=== PATIENT | male | born 1990 | race Caucasian/White ===

== ENCOUNTER 2016-08-27 19:00 | Inpatient (IN) ==
--- NOTE | 2016-08-27 19:04 | Emergency Department Note ---
Disposition Clinical Impression: Chest pain, Abnormal EKG Disposition: Admitted As Inpatient General Adult [facility] - General Chief complaint: ED Chest Pain Stated complaint: chest pain Time Seen by Provider: 08/27/16 19:03 - Related Data Home Medications Medication Instructions Recorded Confirmed No Known Home Drugs 08/27/16 08/27/16 Allergies Allergy/AdvReac Type Severity Reaction Status Date / Time No Known Allergies Allergy Verified 08/27/16 20:50 Course Vital Signs Temperature 98.2 F 08/27/16 19:02 Pulse Rate 70 08/27/16 19:02 Respiratory Rate 11 08/27/16 19:02 Blood Pressure 137/86 08/27/16 19:02 O2 Sat by Pulse Oximetry 97 08/27/16 19:02 Temperature 98.2 F 08/27/16 19:02 Pulse Rate 59 08/27/16 21:25 Respiratory Rate 14 08/27/16 22:26 Blood Pressure 127/75 08/27/16 22:26 O2 Sat by Pulse Oximetry 96 08/27/16 21:25 Oxygen Delivery Oxygen Delivery Room Air Medical Decision Making - Lab Data Lab Results 08/27/16 Range/Units 21:18 Troponin I 0.00 (0-0.03) ng/mL Attestation Statement - Attestation Attestation: I examined this patient and my medical decision-making was reviewed with the WIENER PACKER/PA/Advanced Practice Nurse/Resident Physician. I agree with the documented findings, disposition and treatment plan as described except to the extent set forth below. [id number] time provided Patient presents as a transfer from the [place]. He reports palpitations and dyspnea last night. chest tightness at work today. The labs reviewed by me. EKG reviewed by me. Patient appears in no acute distress 20:25: ECG discussed with the on-call baker doughnut by the resident physician.
--- NOTE | 2016-08-27 21:06 | Emergency Department Note ---
Disposition Clinical Impression: Abnormal EKG Chest pain Qualifiers: Chest pain type: unspecified Qualified Code(s): R07.9 - Chest pain, unspecified Disposition: Admitted As Inpatient Referrals: NO,PCP [Primary Care Provider] - Forms: ED Satisfaction Letter Chest Pain HPI - General Chief Complaint: ED Chest Pain Stated Complaint: chest pain Time Seen by Provider: 08/27/16 19:03 Source: EMS Limitations: no limitations Vital Signs Reviewed: Yes Nursing Notes Reviewed: Yes - History of Present Illness HPI Narrative: Patient transferred from the [place] for evaluation of chest pain and abnormal EKG. Patient's symptoms started last night with palpitation shortness of breath associated midsternal chest pain/pressure. 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 Symptoms resolved after approximately 5 minutes. Patient is currently chest pain-free however repeat EKG continues to show abnormal pattern. Chest x-ray shows no pulmonary consolidation noted pneumothorax or nonenlarged cardiac silhouette. Past medical history includes gynecomastia and alcohol dependence. Blood work shows WBC of 5.6. Hemoglobin 15.1. Platelets 204. CK electrolytes LFTs and troponin negative. Severity scale (1-10): 0 - Related Data Home Medications Medication Instructions Recorded Confirmed No Known Home Drugs 08/27/16 08/27/16 Allergies Allergy/AdvReac Type Severity Reaction Status Date / Time No Known Allergies Allergy Verified 08/27/16 20:50 Chest Pain PMH - Past Medical History Medical history: Reports: asthma Psychiatric history: Reports: no psych history - Social History Smoking Status: Former smoker Alcohol use: Reports: none Drug use: Reports: none Physical Exam - General Limitations: no limitations General appearance: alert, in no apparent distress - Head Head exam: atraumatic, normocephalic - Eye Eye exam: Present: normal appearance - ENT ENT exam: normal exam - Neck Neck exam: Present: normal inspection - Chest Chest inspection: Present: normal inspection, symmetric chest wall rise, other ( Gynecomastia). Absent: tenderness - Respiratory Respiratory exam: Present: normal lung sounds bilaterally. Absent: respiratory distress, wheezes - Cardiovascular Cardiovascular exam: Present: regular rate, normal rhythm - Abdominal Exam Abdominal exam: Present: soft, Non-Tender - Extremities Exam Extremities exam: Present: normal inspection. Absent: tenderness - Back Exam Back exam: Present: normal inspection - Neurological Exam Neurological exam: Present: alert, oriented X3. Absent: CN II-XII intact - Psychiatric Psychiatric exam: Present: normal affect, normal mood - Skin Skin exam: Present: warm, dry Course - Reevaluation(s) Reevaluation #1: Discussed with patient and mother at bedside. Due to the abnormal findings and discussion with cardiology would like to stay for further evaluation. - Consultations Consultation #1: Discussed with cardiology. Patient does have an abnormal EKG including a right bundle branch block with inferior changes. Patient would benefit from further evaluation at this time. Recommends echocardiogram for further workup as well as cardiology consult. Oxygen Therapist is unable to recommend outpatient treatment at this time. Consultation #2: Discussed with the hospitalist, Dr. Hahn, patient accepted for admission. Vital Signs Temperature 98.2 F 08/27/16 19:02 Pulse Rate 70 08/27/16 19:02 Respiratory Rate 11 08/27/16 19:02 Blood Pressure 137/86 08/27/16 19:02 O2 Sat by Pulse Oximetry 97 08/27/16 19:02 Temperature 98.2 F 08/27/16 19:02 Pulse Rate 62 08/27/16 20:04 Respiratory Rate 14 08/27/16 20:04 Blood Pressure 137/86 08/27/16 20:04 O2 Sat by Pulse Oximetry 96 08/27/16 20:04 Chest Pain - Radiology Data Radiology results reviewed: Yes I reviewed the patient's radiology results. - EKG Data EKG attestation: Yes I reviewed and interpreted this EKG. EKG results narrative: EKG shows sinus rhythm with right bundle branch block. Ventricular rate 64 bpm. TN interval 140. QRS 112. QT 388. Patient has inverted T waves in V1. Patient has abnormal inferior leads including RR prime in lead 3 as well as inverted T waves in the inferior leads. No previous EKG.
--- NOTE | 2016-08-27 22:27 | Internal Med History&Physical ---
Date of Encounter: 08/27/16 Time of Encounter: 22:24 Assessment and Plan (1) Chest pain Current visit: Yes Status: Acute Patient presents with atypical chest pain. Pain occurs at rest. No relation with exertion. He runs 2 miles several days a week on treadmill without limiting chest pain. His EKG shows an incomplete RBBB but we do not have a baseline. Will check the D-dimer. Serial troponin. Cardiology evaluation. Echocardiogram. Qualifiers: Chest pain type: unspecified Qualified Code(s): R07.9 - Chest pain, unspecified Internal Medicine - H&P: HPI Chief complaint: chest pain History of present illness: Mr. Gudino is a 26 year old male patient with no past medical history was transferred from the [facility] for evaluation of chest pain after some concern about his electrocardiogram. For the past 3 days patient has been having episodes of registered or chest pain that have no clear relation with exertion occasionally occurs at rest last for a few minutes associated shortness of breath and relief spontaneously. 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 He also lifts weight. He denies any pain in his back he denies any abdominal or flank pain. Pain is not superior intensity. No relation paint coffer deep inspiration. No family history of premature coronary artery disease in first- degree relatives. No family history of unprovoked DVT or pulmonary embolism. Patient denies any syncope Past Med Surg Social Fam HX - Past Medical History Medical history: asthma Psychiatric history: no psych history - Social History Smoking Status: Former smoker Smokeless Tobacco Status: No Alcohol use: none Drug use: none Internal Medicine - H&P: Meds No Known Home Drugs 08/27/16 [History] Allergies No Known Allergies Allergy (Verified 08/27/16 20:50) All Systems PM: A 10-system review of systems was performed and is negative for pertinent findings except as documented above in the HPI. Review of systems: Ten point review of systems is negative except for HPI. - Constitutional Vitals: Temp Pulse Resp BP Pulse Ox 98.2 F 59 16 118/69 96 08/27/16 19:02 08/27/16 21:25 08/27/16 21:25 08/27/16 21:25 08/27/16 21:25 Exam: Gen.: patient is alert and oriented times 3 not in distress. Cardiac: normal S1 S2 no additional sounds or murmur. Chest: Clear auscultation bilaterally abdomen: soft nontender nondistended normal bowel sounds no focal neurological deficits lower extremity lax calf muscles no swelling
[2016-08-28] MEDS ORDERED: *HR* Enoxaparin 30 MG/0.3 ML SYRINGE SQ SCH (07:00)
[2016-08-28] MEDS ORDERED: Aspirin 81 MG TAB.CHEW PO SCH (09:00)
[2016-08-28] MEDS ORDERED: Famotidine 20 MG TABLET PO SCH (09:00)
--- NOTE | 2016-08-28 09:31 | Cardiology Consult Note ---
<Ervin Alan Sukhjinder - Last Filed: 08/28/16 09:27> Date of Encounter: 08/28/16 Time of Encounter: 09:27 Assessment and Plan (1) Chest pain Current Visit: Yes Status: Acute Atypical CP midsternal--occurs at both rest and exertion, not worsened or relieved by anything specifically. Associated with dyspnea and diaphoresis. EKG with incomplete RBBB. Troponins negative x 2. Will obtain echo to evaluate structure and function. Exercise stress test to evaluate for ischemia. DDimer <215 and pt maintaining O2 on RA. No high suspicion for PE. Further recommendations following Echo and Exercise stress test results. Qualifiers: Chest pain type: unspecified Qualified Code(s): R07.9 - Chest pain, unspecified (2) Palpitations Current Visit: Yes Status: Acute Reports intermittent palpitations. 12 hour tele AVG HR 64. No significant pauses or arrhythmias noted. Echo and exercise stress. (3) Abnormal EKG Current Visit: Yes Status: Acute Incomplete RBBB on EKG, no prior to compare. No evidence of acute ischemic changes. Echo and exercise stress. Discussion w patient/family: The assessment and plan as outlined above was discussed with the patient and/or family members who expressed understanding and agreement. All questions were answered. Thank you for involving us in the care of your patient. Please call with any questions. I will discuss all the above with Dr. Craig and make changes as necessary. History of Present Illness Consult date: 08/28/16 Requesting physician: Kyree Wick Consult reason: chest pain, RBBB Chief complaint: chest pain History of present illness: Mr. Gudino is a 26 year old male with no past medical history was transferred from the [facility] for evaluation of chest pain after some concern about his electrocardiogram for RBBB. Pt reports he has been having chest pain for a while, but worsened over the past 2 days. The chest pain is midsternal without radiation mostly, but occasionally feels the pain is in his back. Not associated specifically with exertion, but occurs with both rest and exertion associated with dyspnea and diaphoresis. He reports intermittent palpitations as well. He runs 2 miles several times a week on the treadmill without any limiting chest pain. He also lifts weights. No family history of premature coronary artery disease in first-degree relatives. No family history of unprovoked DVT or pulmonary embolism. Patient denies any syncope. Past Med Surg Social Fam HX - Past Medical History Medical history: asthma Psychiatric history: no psych history - Social History Smoking Status: Former smoker Smokeless Tobacco Status: No Alcohol use: none Drug use: none Medications and Allergies No Known Home Drugs 08/27/16 [History] Allergies No Known Allergies Allergy (Verified 08/27/16 20:50) All Systems Review: A 10-system review of systems was performed and is negative for pertinent findings except as documented above in the HPI. - Cardiovascular Cardiovascular: as per HPI, chest pain at rest, chest pain with exertion, diaphoresis, dyspnea on exertion, radiating jaw, neck or arm pain, palpitations - Respiratory Respiratory: dyspnea Physical Examination Vital Signs, Last 4 Hours Temp Pulse Resp BP Pulse Ox 08/28/16 07:36 98.8 F 66 16 100/62 98 Vital Signs Temp Pulse Resp BP Pulse Ox 08/28/16 07:36 98.8 F 66 16 100/62 98 08/28/16 04:12 98.4 F 66 18 107/64 97 08/28/16 00:33 98.4 F 60 20 120/74 98 08/27/16 22:26 14 127/75 08/27/16 21:25 59 16 118/69 96 08/27/16 20:04 62 14 137/86 96 08/27/16 19:02 98.2 F 70 11 137/86 97 Intake and Output 08/27/16 08/28/16 08/28/16 23:59 07:59 15:59 Intake Total 0 / 0 Output Total 200 / 200 Balance -200 / -200 Intake: Oral 0 / 0 Output: Urine 200 / 200 Other: Weight 90.718 kg 91.354 kg Patient Weight 08/28/16 23:59 Weight 91.354 kg General: Conversant, No Apparent Distress HEENT: Atraumatic, Normocephaly, Mucus Membranes Moist Neck: No JVD, Normal carotid pulses Cardiac: Reg Rate and Rhythm, Normal S1 and S2, No Murmur Lungs: Normal Breath Sounds, No Wheeze, Rales, Rhonchi Neuro: Alert and responsive, No focal deficits noted Abdomen: Soft, Non-Tender Skin: No rashes noted on visualized skin Musculoskeletal: No Chest Wall Tenderness Extremities: No Clubbing, No Cyanosis, No Edema, Normal Pulses Results Lab Results 08/28/16 08/28/16 06:45 06:45 D-Dimer < 215 Troponin I 0.00 Cardiac Enzymes 08/28/16 08/27/16 Range/Units 06:45 21:18 Troponin I 0.00 0.00 (0-0.03) ng/mL Active Medications Aspirin (Aspirin) 81 mg PO DAILY [facility] Stop: 02/27/17 09:01 Enoxaparin Sodium (Lovenox) 30 mg SQ 0700 RISA PRN Reason: Protocol Stop: 02/27/17 07:01 Famotidine (Pepcid) 20 mg PO DAILY RISA PRN Reason: Protocol Stop: 02/27/17 09:01 - Imaging and Cardiology Chest Xray: report reviewed Echo: pending - EKG Interpretation EKG results cardiology: personally reviewed (SR, incomplete RBBB), other (12 hour tele AVG HR 64, no significant pauses or arrhythmias.) Consult Discharge Plan - Plan Referrals: [facility] [Primary Care Provider] - <Steffany Craig - Last Filed: 08/28/16 11:46> Date of Encounter: 08/28/16 Assessment and Plan Discussion w patient/family: The assessment and plan as outlined above was discussed with the patient and/or family members who expressed understanding and agreement. All questions were answered. Thank you for involving us in the care of your patient. Please call with any questions. History of Present Illness History of present illness: Mr. Gudino is a 26 year old male All Systems Review: A 10-system review of systems was performed and is negative for pertinent findings except as documented above in the HPI. Physical Examination Vital Signs, Last 4 Hours Temp Pulse Resp BP Pulse Ox 08/28/16 11:13 97.8 F 63 16 108/65 98 Results Lab Results 08/28/16 08/28/16 06:45 06:45 D-Dimer < 215 Troponin I 0.00 - Attending Attestation I examined this patient and my medical decision-making was reviewed with the GROUNDSMAN/PA/Advanced Practice Nurse/Resident Physician. I agree with the documented findings, disposition and treatment plan. Mr. Gudino presents with atypical symptoms of chest pain and palpitations developing over the past week. His troponins are negative and there are no concerning ECG findings. He has a IRBBB which can be a normal finding. We discussed performing an echo for evaluation of structure and function. He will also have a standard stress test for evaluation of symptoms, hemodynamics and dysrhythmia. Given his age and lack of comorbidities, ischemia would be unlikely. This was discussed with the patient and his Mother. Patient agrees with testing.
[2016-08-28 11:14] VITALS: BP 108/65
[2016-08-28] MEDS ORDERED: Aspirin Enteric Coated 81 MG Tablet PO SCH (12:15)
--- NOTE | 2016-08-28 14:41 | Discharge Summary ---
Date of Encounter: 08/28/16 Time of Encounter: 14:37 - Discharge Diagnosis (1) Abnormal stress electrocardiogram test using treadmill Priority: Primary Status: Acute (2) Abnormal EKG Priority: Secondary Status: Acute (3) Chest pain Priority: Secondary Status: Acute Qualifiers: Chest pain type: precordial pain Qualified Code(s): R07.2 - Precordial pain - Discharge Medications Home Medications: No Known Home Drugs 08/27/16 [History] Allergies/Adverse Reactions: Allergies No Known Allergies Allergy (Verified 08/27/16 20:50) Procedures/tests Complete & Pending: Procedures Performed prior 72 hours Category Date Time Status EV echocardiogram Routine Y 08/28/16 22:22 Completed SP exercise stress ECG Routine Y 08/28/16 09:23 Completed Date of admission: 08/27/16 21:44 Primary care physician: PCP MYRA Consults: 08/27/16 22:22 Consult to Cardiology [CONS] Routine Comment: Consulting Provider: Cardiology Kylie Reason for Consult: chest pain Call Completed: Yes Discharging clinician: Aris Echevarria Anticipated date of discharge: 08/28/16 - Patient Status Disposition: Transfer Other Condition: Fair Functional capacity at discharge: independent ambulation - Discharge Instructions Follow Up With: [facility] [Primary Care Provider] - - Diet and Activity Diet: low fat, low cholesterol, low salt diet Hospital course: Mr. Gudino is a 26 year old male with no significant past medical history who was observed in hospital after presenting with chest pain. He had abnormal EKG changes on initial presentation with right bundle branch block and inverted T waves in the inferior leads. Cardiology was consulted and recommended a 2-D echocardiogram and cardiac stress test. Patient just underwent a stress test and had abnormal stress response on EKG with acute ST segment depression in involving the lateral leads. I discussed with cardiology and they recommend that the patient undergo cardiac catheterization or CT scanning of his coronaries As he could have an anatomical abnormalities rather than obstructive coronary artery disease. However, patient states patient and his family wishes to undergo CT scan rather than cardiac catheterization at this time. This test cannot be done here. Therefore the patient will be transferred to a tertiary care center where this study can be done and patient can undergo further evaluation if needed. I discussed his case with [facility] in [place] and patient will be transferred there. - Time Spent with Patient Total time spent providing and/or coordinating discharge services: Less than 30 minutes (27 min) - Constitutional Vitals: Temp Pulse Resp BP Pulse Ox 97.8 F 63 16 108/65 98 08/28/16 11:13 08/28/16 11:13 08/28/16 11:13 08/28/16 11:13 08/28/16 11:13 General appearance: Present: cooperative, A&O X 3, no acute distress, answers questions appropriately - Respiratory Respiratory exam: Present: CTAB. Absent: accessory muscle use, rales, rhonchi, wheezes - Cardiovascular Cardiovascular exam: Present: RRR, +S1, +S2. Absent: diastolic murmur, gallop, rubs, systolic murmur - Extremities Exam Extremities exam: Present: warm, radial pulses palpable and symetrical. Absent : calf tenderness, cyanotic, pedal edema - Attending Attestation This document has been at least partially created by [employer]fox recognition technology by Dr. Echevarria. Errors in grammar, wording or other phrases may exist. If errors are found after the documentation is signed, they will be addressed individually in the addendum section of this document when appropriate.
--- NOTE | 2016-08-28 15:00 | Event Note ---
Date of Encounter: 08/28/16 Time of Encounter: 14:55 - Cardiology Event Note Standard stress test completed. Pt had significant diffuse ST depression with exercise, since recovered with rest and back to baseline. He denied any dyspnea , palpitations, or chest pain. Target HR achieved. Given significant EKG changes , further work-up is warranted. Given his age and lack of risk factors, anomalous coronary artery is suspected. Would recommend cardiac CTA or cardiac MRI, but unfortunately those tests are not able to be done at [facility] or on the inpt side. Discussed with pt and mother regarding a [facility] for further evaluation. They prefer transfer to [place] so that he can have appropriate cardiac imaging (CTA vs MRI), which is reasonable. Will include stress test report in chart and put echo on disc. Echo is stil pending reading.
--- NOTE | 2016-08-28 15:46 | Exercise Stress Test ---
Exercise Stress Name: Earle Gudino Date of Study: 08/28/2016 Date: 1990 Ht: 72.0in Medical Record#: [id number] Age: 26 Wt: 200.0lb Gender: Male BSA: 2.13 Order #: [id number] Location: [facility] Room #: 2A32 Reading Physician: Keyur Beltran DO, FACC, FASNC Technologist: Warner Saleh, ASSISTANT INFANT TEACHER, CPFT Supervising Provider: Ervin Alan CNP Primary Physician: [facility] Ordering Physician: Ervin Alan CNP Indication: Chest Pain Impressions: Stress ECG demonstrates extensive T wave inversions and ST depressions in the inferior and anterolateral leads possibly due ischemia. The exercise capacity was excellent. No chest pain. Cardiology team already aware. Findings: Normal sinus rhythm, incomplete RBBB, and possible LVH criteria at rest. No baseline arrhythmias were noted. No arrhythmias noted during exercise or recovery. Stress ECG demonstrates extensive T wave inversions and ST depressions in the inferior and anterolateral leads possibly due to ischemia. The patient demonstrated a normal blood pressure response. The exercise capacity was excellent. No chest pain during stress procedure. History: None Stress Test Summary: Stress Test Type: Treadmill Protocol: Chirag Baseline Information: Maximum Predicted HR: 194 85% MPHR: 165 Blood Pressure: 114 / 78 Stress Information: Total Exercise Time: 11 02 Test Terminated Due To: Dyspnea Maximum Blood Pressure: 160 / 74 Maximum Heart Rate: 166 Percent Maximum Heart Rate Achieved: 86 Double Product: 87892 METS Reached: 12.8 Symptoms: No chest symptoms Updated by Keyur Beltran DO, FACC, FASE, FASNC on 08/28/2016 3:39:18 PM electronically signed on 08/28/2016 3:40:50 PM with status of Final
--- NOTE | 2016-08-28 15:52 | ECHO - Doppler Report ---
Echocardiogram Name: Earle Gudino Date of Study: 08/28/2016 Date: 1990 Ht: 72.0 in Medical Record#: [id number] Age: 26 Wt: 201.0 lb Gender: Male BSA: 2.13 Order #: [id number] Location: [facility] Room #: 2A32 Reading Physician: Keyur Beltran DO, SEVERIANO, MAXI CAMACHO Solar Sales Manager: Catia Fernandez RVT Ordering Physician: Kyree Wick MD Primary Physician: [facility] Indications: Chest pain Impressions: LVEF 65%. Normal LV chamber size, wall thickness and function. Normal left ventricular diastolic function. Normal right ventricular structure and function. No evidence of pulmonary hypertension. No significant valvular dysfunction. Left Ventricular Wall Motion: Rest Echo Findings All wall segments showed normal motion. Findings: Study Quality * Technically adequate exam. ECG Findings * Sinus bradycardia. HR 50s. Left Ventricle * LVEF 65%. * Normal LV chamber size, wall thickness and function. * Normal left ventricular diastolic function. Right Ventricle * Normal right ventricular structure and function. Left Atrium * Mildly dilated left atrium. Right Atrium * Mildly dilated right atrium. Aortic Valve * Trileaflet aortic valve with normal function. * No aortic regurgitation. * No aortic stenosis. Interatrial Septum * No evidence of PFO by color Doppler. Mitral Valve * Normal mitral valve structure and function. * No mitral regurgitation. * No mitral stenosis. Tricuspid Valve * Normal tricuspid valve structure and function. * Trace tricuspid regurgitation. * No evidence of pulmonary hypertension. Pulmonic Valve * Normal pulmonic valve structure and function. * No pulmonic regurgitation. Aorta * Normally sized aortic root. Pericardium * The pericardium appears normal. IVC * Normal IVC dimensions and inspiratory collapse. Pulmonary Artery * Normal visualized portions of the main pulmonary artery. History Measurements: BP: 108/ 65 2D Normal Values RVIDd: 3.10 cm <2.7 cm IVSd: 1.00 cm 0.6 - 1.0 cm LVIDd: 4.90 cm 3.7 - 5.6 cm LVPWd: 1.00 cm 0.6 - 1.1 cm LVIDs: 3.90 cm 1.5 - 3.6 cm AO: 2.60 cm < 4.0 cm LA: 3.50 cm 2.0 - 4.0cm %FS: 20.40 cm >25 % LA volume: 47 Mitral Valve Peak E:1.11 m/sec Peak E' Lat Mian:14.4 cm/s Peak E' Med Mian:13.3 cm/s E/E' Lat Ratio:7.7 E/E' Med Ratio:8.3 Tricuspid Valve TV Regurg Peak Grad: 13.00mmHg TV Regurg Peak Mian: 1.81m/sec Updated by Keyur Beltran DO, SEVERIANO, MAXI CAMACHO on 08/28/2016 3:45:25 PM electronically signed on 08/28/2016 3:47:02 PM with status of Final Wall Motion [place]: 1=Normal, 2=Hypokinesis, 3=Akinesis, 4=Dyskinesis, 5=Aneurysmal, 6=Hyperkinetic, X=Not Visualized (Blank)=Missing
--- NOTE | 2016-08-29 19:36 | Electrocardiograph Report ---
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
[2016-08-30 20:06] LABS: CK-MB (CK isoenzymes) 0 % (0-4); CK-MM (CK-isoenzymes) 100 % (96-100)
[2016-09-01 07:52] LABS: CK Total (Ck Isoenzymes) 66 U/L (20-200); CK-BB (CK isoenzymes) 0 % (0-0)
== END 2016-08-28 18:43 | disposition short-term general hospital (02) | DRG 313 ==
LOC: EMEROO 19:00 → 2ANU 21:44 → OBSVTOIN 21:44 → INTOOBSV 21:44 → 2ANU 23:00
PROVIDERS: ADMIT Internal Medicine; ATTEND Internal Medicine

== ENCOUNTER 2017-05-26 23:05 | Inpatient (IN) ==
[2017-05-26] MEDS ORDERED: 0.9 % Sodium Chloride 1,000 ML IVC ONE (23:39)
[2017-05-26] MEDS ORDERED: Aspirin 325 MG TABLET PO ONE (23:39)
--- NOTE | 2017-05-26 23:40 | Emergency Department Note ---
Disposition Clinical Impression: Chest pain Qualifiers: Chest pain type: unspecified Qualified Code(s): R07.9 - Chest pain, unspecified Disposition: Admitted As Inpatient Condition: Good Arrhythmia/Palpitations HPI - General Chief Complaint: ED Arrhythmia/Palpitations Stated Complaint: "Rapid Heart Rate/Left Arm Numb" Time Seen by Provider: 05/26/17 23:19 Source: patient, family Limitations: no limitations Nursing Notes Reviewed: Yes Vital Signs Reviewed: Yes - History of Present Illness HPI Narrative: Patient presents for evaluation of chest pain that started earlier today. Patient has a history of intermittent chest pains that was evaluated previously with abnormal stress test and CTA at [place]. The patient's chest pain today started several hours prior to arrival. Patient states that he has a monster energy drink every day but no other caffeine or stimulants. Patient's initial presenting EKG is concerning as he has a right bundle branch block with new T- wave inversions in the anterior as well as lateral and inferior leads. Patient' s EKG was evaluated compared to previous of 08/27/2016. A repeat EKG was obtained at 1:10 with improvement in the anterior T-wave inversions but the patient does have concern for biphasic T waves in the anterior leads consistent with possible Wellens Syndrome. Patient will need further observation and management. - Related Data Home Medications Medication Instructions Recorded Confirmed No Known Home Drugs 08/27/16 08/27/16 Allergies Allergy/AdvReac Type Severity Reaction Status Date / Time No Known Allergies Allergy Verified 05/26/17 23:15 Review of Systems: CONSTITUTIONAL: No weight loss, fever, chills, weakness or fatigue. HEENT: Eyes: No visual changes. Ears, Nose, Throat: No hearing loss, difficulty talking or unable to swallow. SKIN: No rash or itching. CARDIOVASCULAR: Chest pain RESPIRATORY: No shortness of breath, cough or sputum. GASTROINTESTINAL: No anorexia, nausea, vomiting or diarrhea. No abdominal pain or blood. GENITOURINARY: No burning on urination or hematuria. NEUROLOGICAL: No headache, dizziness, syncope, paralysis, ataxia, numbness or tingling in the extremities. No change in bowel or bladder control. MUSCULOSKELETAL: No muscle pain, back pain, joint pain or stiffness. Past Medical History - Past Medical History Medical history: Reports: no medical history Psychiatric history: Reports: no psych history - Social History Smoking Status: Former smoker Smokeless Tobacco Status: No Alcohol use: Reports: occasionally Drug use: Reports: none Physical Exam General: Well appearing, nontoxic, no acute distress Head: Normocephalic Atraumatic Eyes: PERRL, EOMI ENT: Airway patent, no stridor Neck: supple, no meningismus Chest: Lungs clear to auscultation bilateral Cardiac: Regular rate and rhythm, no murmurs, rubs or gallops Abdomen: soft, nontender, nondistended; no guarding, rebound, or tenderness to percussion Musculoskeletal: Calves symmetric, nontender, no palpable cord Skin: No rash, normal skin tone Neuro: Alert and Oriented to person, place, and time; No focal deficit, - General Limitations: no limitations General appearance: alert, in no apparent distress Course - Reevaluation(s) Reevaluation #1: Troponin negative. EKG changes consistent with changes in pain. Patient will need further observation and cardiology consult. Vital Signs Temperature 98.2 F 05/26/17 23:16 Pulse Rate 108 05/26/17 23:16 Respiratory Rate 16 05/26/17 23:16 Blood Pressure 172/92 05/26/17 23:16 O2 Sat by Pulse Oximetry 99 05/26/17 23:16 Temperature 98.2 F 05/27/17 02:44 Pulse Rate 80 05/27/17 02:44 Respiratory Rate 16 05/27/17 02:44 Blood Pressure 133/78 05/27/17 02:44 O2 Sat by Pulse Oximetry 97 05/27/17 02:44 Oxygen Delivery Oxygen Delivery Room Air Arrhythmia/Palpitations - Medical Records Medical records reviewed: Yes I reviewed the patient's medical records. - Lab Data Lab results reviewed: Yes I reviewed the patient's lab results. Result diagrams: 05/27/17 00:02 05/27/17 00:02 Lab Results 05/27/17 05/27/17 05/27/17 Range/Units 00:02 00:02 00:02 WBC 9.4 (4.3-11.1) K/mcL RBC 4.83 (4.19-5.50) M/mcL Hgb 14.4 (12.9-16.9) g/dL Hct 43.0 (37.5-50.1) % MCV 89.0 (83.0-100.0) fL MCH 29.8 (28.0-33.3) pg MCHC 33.5 (31.6-35.5) g/dL RDW 12.9 (11.5-14.5) % Plt Count 264 (140-400) K/mcL MPV 10.3 (9.4-12.4) fL Immature Gran % 0.2 (0-4) % Seg Neutrophils % 65.7 % Lymphocytes % 27.1 % Monocytes % 6.0 % Eosinophils % 0.3 % Basophils % 0.7 % Neutrophils # 6.2 (1.6-8.9) K/mcL Lymphocytes # 2.5 (0.6-4.6) K/mcL Monocytes # 0.6 (0.0-1.3) K/mcL Eosinophils # 0.0 (0.0-0.6) K/mcL Basophils # 0.1 (0.0-0.2) K/mcL D-Dimer < 215 (0-500) ng/mLFEU Sodium 140 (136-145) mEq/L Potassium 3.8 (3.5-4.5) mEq/L Chloride 103 (98-109) mEq/L Carbon Dioxide 28 (19-29) mEq/L BUN 13 (8-26) mg/dL Creatinine 0.91 (0.72-1.25) mg/dL Est GFR ( Amer) > 60 (> 60) Est GFR (Non-Af Amer) > 60 (> 60) BUN/Creatinine Ratio 14 (6-26) Glucose 95 (70-99) mg/dL Calculated Osmolality 290 (280-300) Calcium 10.0 (8.6-10.8) mg/dL Magnesium 1.8 (1.6-2.6) mg/dL Troponin I (0-0.03) ng/mL TSH 2.175 (0.350-4.840) mcIU/mL 05/27/17 Range/Units 00:02 WBC (4.3-11.1) K/mcL RBC (4.19-5.50) M/mcL Hgb (12.9-16.9) g/dL Hct (37.5-50.1) % MCV (83.0-100.0) fL MCH (28.0-33.3) pg MCHC (31.6-35.5) g/dL RDW (11.5-14.5) % Plt Count (140-400) K/mcL MPV (9.4-12.4) fL Immature Gran % (0-4) % Seg Neutrophils % % Lymphocytes % % Monocytes % % Eosinophils % % Basophils % % Neutrophils # (1.6-8.9) K/mcL Lymphocytes # (0.6-4.6) K/mcL Monocytes # (0.0-1.3) K/mcL Eosinophils # (0.0-0.6) K/mcL Basophils # (0.0-0.2) K/mcL D-Dimer (0-500) ng/mLFEU Sodium (136-145) mEq/L Potassium (3.5-4.5) mEq/L Chloride (98-109) mEq/L Carbon Dioxide (19-29) mEq/L BUN (8-26) mg/dL Creatinine (0.72-1.25) mg/dL Est GFR ( Amer) (> 60) Est GFR (Non-Af Amer) (> 60) BUN/Creatinine Ratio (6-26) Glucose (70-99) mg/dL Calculated Osmolality (280-300) Calcium (8.6-10.8) mg/dL Magnesium (1.6-2.6) mg/dL Troponin I 0.00 (0-0.03) ng/mL TSH (0.350-4.840) mcIU/mL - Radiology Data Radiology results reviewed: Yes I reviewed the patient's radiology results. - EKG Data EKG attestation: Yes I reviewed and interpreted this EKG. EKG results narrative: Patient's initial presenting EKG is concerning as he has a right bundle branch block with new T-wave inversions in the anterior as well as lateral and inferior leads. Ventricular rate 105. MO interval 125. QRS 117. QTC 385. No significant ST elevations or depressions. Patient's EKG was evaluated compared to previous of 08/27/2016. A repeat EKG was obtained at 1:10 with improvement in the anterior T-wave inversions but the patient does have concern for biphasic T waves in the anterior leads consistent with possible Wellens Syndrome. Ventricular rate of 86 bpm. MO interval 137. QRS 118. QTC 404. No significant ST elevations or depressions.
[2017-05-27 00:09] LABS: Basophils # 0.1 K/mcL (0.0-0.2); Basophils % 0.7 %; Eosinophils % 0.3 %; Hemoglobin 14.4 g/dL (12.9-16.9); Immature Granulocytes % 0.2 % (0-4); Lymphocytes # 2.5 K/mcL (0.6-4.6); Lymphocytes % 27.1 %; Mean Corpuscular HGB Conc 33.5 g/dL (31.6-35.5); Mean Corpuscular Hemoglobin 29.8 pg (28.0-33.3); Mean Platelet Volume 10.3 fL (9.4-12.4); Monocytes # 0.6 K/mcL (0.0-1.3); Neutrophils # 6.2 K/mcL (1.6-8.9); Platelet Count 264 K/mcL (140-400); Red Blood Count 4.83 M/mcL (4.19-5.50); Red Cell Distribution Width 12.9 % (11.5-14.5); Segmented Neutrophils % 65.7 %
[2017-05-27 00:22] LABS: BUN/Creatinine Ratio 14 (6-26); Blood Urea Nitrogen 13 mg/dL (8-26); Carbon Dioxide 28 mEq/L (19-29); Chloride 103 mEq/L (98-109); Glucose 95 mg/dL (70-99); Magnesium 1.8 mg/dL (1.6-2.6); Osmolality,Calculated 290 (280-300); Potassium 3.8 mEq/L (3.5-4.5); Sodium 140 mEq/L (136-145); eGFR For African Americans > 60 (> 60); eGFR For Non-African Americans > 60 (> 60)
--- NOTE | 2017-05-27 00:45 | Emergency Department Note ---
START Narrative - START START: I examined this patient and my medical decision-making was reviewed with the Resident Physician. I agree with the documented findings, disposition and treatment plan as described except to the extent set forth below. 26 year old male who presnets for increased chest pain and had been prviously worked up for these symptomst in the past prsents today with increased chest pressure and has new ischemic changes on EKG with t wave inversions. PAtinet will be given a cardiopulmonary workup for evaluation and depending on workpu may need to be admitted for further workup if the pain does not improve.
[2017-05-27 01:39] LABS: Thyroid Stimulating Hormone 2.175 mcIU/mL (0.350-4.840)
[2017-05-27] MEDS ORDERED: *HR* Enoxaparin 100 MG/ML SYRINGE SQ ONE (04:43)
--- NOTE | 2017-05-27 04:48 | Internal Med History&Physical ---
Date of Encounter: 05/27/17 Time of Encounter: 04:46 Assessment and Plan (1) Chest pain Current visit: Yes Status: Acute Patient presents with a one-hour episodes of chest pain. EKG shows right bundle branch block in addition to SDT wave changes in the right precordial leads concerning for ischemia. Patient mentioned that he was transferred to [facility] after a positive stress test at our facility for further workup. He is not aware of the details of these results. Initial troponin normal. Check serial troponin. Start the patient on aspirin. Will give photos Lovenox. Cardiology consultation. Qualifiers: Chest pain type: unspecified Qualified Code(s): R07.9 - Chest pain, unspecified Internal Medicine - H&P: HPI Chief complaint: chest pain History of present illness: Mr. Gudino is a 26 year old male presents to the emergency room today with the main complaint of chest pain. Approximately 11 PM patient experienced an episode of chest pain lasted for approximately one hour associated with sweating and resolve spontaneously. Patient is often during my interview. Patient mentioned that he had recent work up at our facility and after a positive stress test result he was transferred to [facility] for further evaluation. He is not exactly sure of the details of these results. Patient denies any hemoptysis leg pain or tenderness. No cough expectoration fever chills. Past Med Surg Social Fam HX - Past Medical History Medical history: no medical history Psychiatric history: no psych history - Social History Smoking Status: Never smoker Smokeless Tobacco Status: No Alcohol use: occasionally Drug use: none - Family History Grandmother Hx Family Endocrine Disorder: Yes Internal Medicine - H&P: Meds No Known Home Drugs 08/27/16 [History] 3 Allergy/AdvReac Type Severity Reaction Status Date / Time No Known Allergies Allergy Verified 05/26/17 23:15 All Systems PM: A 10-system review of systems was performed and is negative for pertinent findings except as documented above in the HPI. Review of systems: 10 point review of systems is negative except for HPI - Constitutional Vitals: Temp Pulse Resp BP Pulse Ox 98.2 F 80 16 133/78 97 05/27/17 02:44 05/27/17 02:44 05/27/17 02:44 05/27/17 02:44 05/27/17 02:44 Exam: General: Patient is A&O X3 Cardiac: normal S1, S2, no additional sounds or murmurs Chest: Clear to auscultation bilaterally Abdomen: soft, nontender, non distended, normal BS. Neuro: No focal deficits Internal Med - H&P Results - Labs CBC & Chem 7: 05/27/17 00:02 05/27/17 00:02
[2017-05-27] MEDS ORDERED: Aspirin 81 MG TAB.CHEW PO SCH (09:00)
--- NOTE | 2017-05-27 09:50 | Cardiology Consult Note ---
<Corby Eaton - Last Filed: 05/27/17 13:28> Date of Encounter: 05/27/17 Time of Encounter: 09:50 Assessment and Plan (1) Abnormal EKG Current Visit: No Status: Chronic Per Cardiology: Known hx of abnormal ECG. Had abnormal exercise stress test August 2016 with significant ECG changes-- ECG showed extensive T-wave inversions and ST depressions in inferior and anterolateral leads; METs 12.8. Reportedly underwent cardiac CTA at [place] with no significant findings-- awaiting medical records for review. (2) Chest pain Current Visit: Yes Status: Acute Per Cardiology: Very minimal risk factors. Atypical chest pain. Troponin 0.003. Symptoms seem to occur with palpitations at rest and with exertion. Echo August and showed EF preserved 65%, normal LV and RV function, no pulmonary hypertension , no significant Doppler dysfunction, NSWMA. Again awaiting cardiac CTA results. No further ischemic evaluation warranted this time unless any significant findings found on cardiac CTA. Patient agreeable to plan. Explore noncardiac causes of CP. Qualifiers: Chest pain type: unspecified Qualified Code(s): R07.9 - Chest pain, unspecified (3) Palpitations Current Visit: No Status: Acute Per Cardiology: Sinus rhythm on telemetry with no significant events. Reportedly had Holter at [facility] facility with no findings. Reportedly drinks energy drink daily, encouraged to discontinue. TSH ok. Discussion w patient/family: The assessment and plan as outlined above was discussed with the patient who expressed understanding and agreement. All questions were answered. Thank you for involving us in the care of your patient. Please call with any questions. History of Present Illness Consult date: 05/27/17 Requesting physician: Kyree Wick Consult reason: CP Chief complaint: CP, Palps History of present illness: Mr. Gudino is a 26 year old male with a relevant PMH hx of nicotine abuse-- smoked cigs for 1 month. Cardiology C/S for CP. Patient reports intermittent left midsternal chest discomfort with palpitations at rest and with exertion. Reports had abnormal stress test earlier this year and transferred to [place] and underwent cardiac CTA with reported no significant findings. He reports very active with work with no symptoms. He does report he does take an energy drink on a daily basis. With his palpitations he does experience chest discomfort and some mild short of breath. He denies any dizziness, syncope, falls. Reports completed a Holter [place] the [place] previously and he is unaware of any results. An identifying active bleeding or blood loss. Denies any recent infectious process. Currently chest pain free. Past Med Surg Social Fam HX - Past Medical History Attestation: Yes The following information was validated with the patient. Source: patient, old records reviewed Medical history: no medical history Psychiatric history: no psych history - Social History Smoking Status: Former smoker Smokeless Tobacco Status: No Alcohol use: occasionally Drug use: none - Family History Grandmother Hx Family Endocrine Disorder: Yes Medications and Allergies No Known Home Drugs 08/27/16 [History] 3 Allergy/AdvReac Type Severity Reaction Status Date / Time No Known Allergies Allergy Verified 05/26/17 23:15 All Systems Review: A 10-system review of systems was performed and is negative for pertinent findings except as documented above in the HPI. - Cardiovascular Cardiovascular: as per HPI, chest pain at rest, chest pain with exertion, palpitations Physical Examination Selected Entries 05/27/17 06:58 05/27/17 07:24 Temperature 97.8 F Pulse Rate 72 Respiratory Rate 17 Blood Pressure 117/69 O2 Sat by Pulse Oximetry 97 Oxygen Delivery Method Room Air General: Conversant, No Apparent Distress HEENT: Atraumatic, Normocephaly, Mucus Membranes Moist Neck: No JVD, Normal carotid pulses Cardiac: Reg Rate and Rhythm, Normal S1 and S2, No Murmur Lungs: Normal Breath Sounds, No Wheeze, Rales, Rhonchi Neuro: Alert and responsive, No focal deficits noted Abdomen: Soft, Non-Tender Skin: No rashes noted on visualized skin Musculoskeletal: No Chest Wall Tenderness Extremities: No Clubbing, No Cyanosis, No Edema, Normal Pulses Results 05/27/17 00:02 05/27/17 00:02 Laboratory Tests 05/27/17 05/27/17 05/27/17 00:02 00:02 00:02 D-Dimer < 215 Magnesium 1.8 Troponin I 0.00 TSH 2.175 05/27/17 07:30 D-Dimer Magnesium Troponin I 0.00 TSH ITS Impressions Chest X-Ray 05/26/17 23:39 IMPRESSION: No acute process. D/ / Raymon Jacome MD / Raymon Jacome MD Interpreting Provider: Raymon Jacome MD Active Medications Aspirin (Aspirin) 81 mg PO DAILY RISA Stop: 11/26/17 09:01 Last Admin: 05/27/17 08:14 Dose: 81 mg - Imaging and Cardiology Stress Test: report reviewed Echo: report reviewed - EKG Interpretation EKG results cardiology: personally reviewed (comparable to baseline-- reviewed with Dr. Craig), other (Tele shows avg HR 73, SR, no events noted) Consult Discharge Plan - Plan [facility]errals: [facility]Primary Care Provider[facility] - 05/29/17 2:30 pm (Please follow up as schedule...) <Steffany Craig - Last Filed: 05/27/17 13:56> Date of Encounter: 05/27/17 - Attending Attestation I have personally performed a face to face evaluation on this patient. I have reviewed and agree with the care plan. Mr. Gudino presents with atypical chest pain, negative troponins and no new ECG changes. He apparently had a false positive standard exercise stress test with ECG changes in August 2016 followed up with a CTA at [place] - waiting on records for review. He has minimal risk factors for CAD. No further ischemic evaluation appears warranted at this time. Echo also returned demonstrating normal LV and RV function. He also describes having a history of palpitations, having undergone a holter [place] the [place] reportedly unremarkable. Recommended to the patient that he decrease his consumption of Red Bull and drink water. TSH is ok. May consider event monitor at discharge. Further recommendations to follow after review of CTA. Assessment and Plan Discussion w patient/family: The assessment and plan as outlined above was discussed with the patient and/or family members who expressed understanding and agreement. All questions were answered. Thank you for involving us in the care of your patient. Please call with any questions. History of Present Illness History of present illness: Mr. Gudino is a 26 year old male All Systems Review: A 10-system review of systems was performed and is negative for pertinent findings except as documented above in the HPI. Physical Examination Vital Signs, Last 4 Hours Temp Pulse Resp BP Pulse Ox 05/27/17 11:05 98.2 F 83 17 132/75 99 Results 05/27/17 00:02 05/27/17 00:02 Lab Results 05/27/17 12:19 Troponin I 0.00
[2017-05-27 11:06] VITALS: BP 132/75
--- NOTE | 2017-05-27 15:05 | Event Note ---
Date of Encounter: 05/27/17 Time of Encounter: 15:00 - Cardiology Event Note Troponins 0.003. Continues to remain chest pain-free. Cardiac CTA results reviewed and showed 0 calcium score. Noted to show "only minimal soft plaque in the proximal LAD just proximal to the dominant diagonal branch with no significant luminal narrowing (well under 50% diameter reduction)". Patient encouraged to discontinue "energy drinks ". Monitor blood pressure-- consider addition of beta meera if continues to have palpitations. No further ischemic evaluation warranted at this time. Patient and mother verbalized understanding and agreed with plan. She'll discuss reviewed with Dr. Craig, cardiology will sign off, reconsult as needed, follow-up with PCP. All questions answered.
--- NOTE | 2017-05-27 15:26 | Discharge Summary ---
Date of Encounter: 05/27/17 Time of Encounter: 15:23 - Discharge Diagnosis (1) Chest pain Priority: Primary Status: Ruled-out Qualifiers: Chest pain type: unspecified Qualified Code(s): R07.9 - Chest pain, unspecified (2) Abnormal EKG Priority: Primary Status: Chronic (3) Palpitations Priority: Primary Status: Acute - Discharge Medications Home Medications: No Known Home Drugs 08/27/16 [History] Allergies/Adverse Reactions: 3 Allergy/AdvReac Type Severity Reaction Status Date / Time No Known Allergies Allergy Verified 05/26/17 23:15 Procedures/tests Complete & Pending: Procedures Performed prior 72 hours Category Date Time Status ECG 12 lead ECG [ECG] Routine Y 05/27/17 01:36 Completed ECG 12 lead ECG [ECG] Routine Y 05/27/17 04:24 Completed Date of admission: 05/27/17 07:52 Primary care physician: PCP MYRA - Patient Status Disposition: Home, Self-Care Condition: Good Overall status at discharge: patient is back to baseline - Discharge Instructions Follow Up With: MYRA,PCP [Primary Care Provider] - 05/29/17 2:30 pm (Please follow up as schedule...) - Diet and Activity Activity: increase activity as tolerated Diet: low salt diet Hospital course: Mr. Gudino is a 26 year old male presented to the emergency room y/d with the main complaint of chest pain. Approximately 11 PM patient experienced an episode of chest pain lasted for approximately one hour associated with sweating and resolve spontaneously. Pt did mention similar episodes of CP in the past, for which he had an extensive wok up done including Cardiac CTA @ [facility] on 08/29/16 which showed Total Coronary artery agatston calcium score 0. Now his EKG showed T wave inversions and ST depression upon presenting to ER, which was also improved an hour later. He was placed on stripe marker and check serial troponins, so far his trop were negative. He was seen by cardiology and reviewed his Cardiac CTA report from [place] , did not recommend any cardiac further work up. Recommend to cut back on his energy drinks and stop binge drinking alcohol. No further ischemia evaluation warranted at this time. If he continue to have palpitations and HTN, suggest to add B meera. Talked to pt and his mother at bed side and explained about these instructions. - Time Spent with Patient Total time spent providing and/or coordinating discharge services: - Constitutional Vitals: Temp Pulse Resp BP Pulse Ox 98.2 F 83 17 132/75 99 05/27/17 11:05 05/27/17 11:05 05/27/17 11:05 05/27/17 11:05 05/27/17 11:05 General appearance: Present: A&O X 3, no acute distress, answers questions appropriately - Head Head exam: Present: atraumatic, normal inspection - Neck Neck exam general surgery: Present: supple - Respiratory Respiratory exam: Present: CTAB. Absent: accessory muscle use, rales, rhonchi, wheezes - Cardiovascular Cardiovascular exam: Present: RRR, +S1, +S2. Absent: diastolic murmur, gallop, rubs, systolic murmur - GI/Abdominal GI/Abdominal exam: Present: soft. Absent: rebound, rigid, tenderness - Extremities Exam Extremities exam: Absent: calf tenderness, pedal edema, tenderness - Neurological Exam Neurological exam: Present: alert, oriented X3 - Psychiatric Psychiatric exam: Present: normal affect, normal mood
--- NOTE | 2017-05-28 05:44 | Electrocardiograph Report ---
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
--- NOTE | 2017-05-28 05:48 | Electrocardiograph Report ---
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
--- NOTE | 2017-05-28 05:51 | Electrocardiograph Report ---
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
--- NOTE | 2017-05-28 05:51 | Electrocardiograph Report ---
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
[2017-05-29 16:52] LABS: CK-BB (CK isoenzymes) 0 % (0-0); CK-MB (CK isoenzymes) 0 % (0-4); CK-MM (CK-isoenzymes) 100 % (96-100)
[2017-05-29 16:52] LABS: CK-BB (CK isoenzymes) 0 % (0-0); CK-MB (CK isoenzymes) 0 % (0-4); CK-MM (CK-isoenzymes) 100 % (96-100)
[2017-05-30 07:24] LABS: CK Total (Ck Isoenzymes) 150 U/L (20-200)
[2017-05-30 07:26] LABS: CK Total (Ck Isoenzymes) 130 U/L (20-200)
== END 2017-05-27 16:58 | disposition home or self-care (01) | DRG 310 ==
LOC: EMEROO 23:05 → 2ANU 23:05 → SUATTDRO 05-27 01:52 → 2ANU 05-27 02:18
PROVIDERS: ADMIT Hospitalist; ATTEND Family Medicine